=== PATIENT | male | born 1935 | race Caucasian/White ===

== ENCOUNTER → 2016-08-29 | Outpatient (CLI) | payer MEDICARE, BC ==
--- NOTE | 2016-09-27 12:36 | RSPPFT ---
DATE OF PROCEDURE: 08/29/16 COMMENTS: VOLUMES DYNAMIC: FVC and FEV1 normal. STATIC: VTG and TLC mildly increased; RV moderately increased. FLOWS: FEV1% and FEF 25-75 moderately reduced. DIFFUSION: Normal. FLOW VOLUME LOOP: Pattern of variable intrathoracic airways obstruction. IMPRESSION: Mild obstructive ventilatory defect with significant improvement post-bronchodilator. There is also mild to moderate hyperinflation and normal diffusion consistent with the clinical diagnosis given of asthma.
== END ==
LOC: HRSP 12:23
PROVIDERS: ATTEND Internal Medicine
DX: J45.909 Unspecified asthma, uncomplicated (principal)
CPT/HCPCS: 94060; 94620; 94726; 94729